=== PATIENT | female | born 1960 | race Hispanic/Latino ===

== ENCOUNTER 2018-02-07 16:22 | Emergency (ER) | payer MEDICARE ==
--- NOTE | 2018-02-07 17:31 | Emergency Department Report ---
ED Psych HPI - General Chief Complaint: Psych Stated Complaint: MENTAL HEALTH EVALUATION Time Seen by Provider: 02/07/18 16:56 Source: patient Mode of arrival: Ambulatory Limitations: No Limitations, Other - History of Present Illness Initial Comments: 57-year-old female with a psychiatric disorder presents to the hospital personnel skilled nursing after recent discharge from [facility]. Patient does not reliably answer questions. She stares and is slow to respond. Apparently she was just discharged from [facility] into [facility] personal skilled nursing. Patient was unable to afford the recently prescribed psychiatric meds. She will be presented to [facility] with this complaint and was told she needed to come to the hospital for medical clearance. Patient does not know her psychiatric diagnosis. He denies physical painGENERAL: Health Center discharge date the plan that most of the information listed as "unable to obtain". Diagnoses listed as "SCPT" schizophrenic chronic paranoid type, cognitive disorder NOS - Related Data Home Medications Medication Instructions Recorded Confirmed Last Taken Citalopram Hydrobromide [celeXA] 20 mg PO QDAY 02/07/18 02/07/18 Unknown Divalproex Sodium [Depakote] 250 mg PO QHS 02/07/18 02/07/18 Unknown Divalproex Sodium [Depakote] 500 mg PO BID 02/07/18 02/07/18 Unknown Lisinopril [Zestril TAB] 10 mg PO QDAY 02/07/18 02/07/18 Unknown Memantine [Namenda] 10 mg PO BID 02/07/18 02/07/18 Unknown Paliperidone Palmitate [Invega 156 mg IM QMONTH 02/07/18 02/07/18 Unknown Sustenna] Ziprasidone [Geodon] 60 mg PO QHS 02/07/18 02/07/18 Unknown Allergies Allergy/AdvReac Type Severity Reaction Status Date / Time No Known Allergies Allergy Unverified 02/07/18 16:38 ED Review of Systems ROS: Stated complaint: MENTAL HEALTH EVALUATION Other details as noted in HPI Comment: Unobtainable due to pts medical conditions ED Past Medical Hx - Past Medical History Previous Medical History?: Yes Hx Psychiatric Treatment: Yes (schizophrenia, cognitive disorder) - Surgical History Past Surgical History?: No Additional Surgical History: unable to obtain - Social History Smoking Status: Unknown if ever smoked - Medications Home Medications: Home Medications Medication Instructions Recorded Confirmed Last Taken Type Citalopram Hydrobromide [celeXA] 20 mg PO QDAY 02/07/18 02/07/18 Unknown History Divalproex Sodium [Depakote] 250 mg PO QHS 02/07/18 02/07/18 Unknown History Divalproex Sodium [Depakote] 500 mg PO BID 02/07/18 02/07/18 Unknown History Lisinopril [Zestril TAB] 10 mg PO QDAY 02/07/18 02/07/18 Unknown History Memantine [Namenda] 10 mg PO BID 02/07/18 02/07/18 Unknown History Paliperidone Palmitate [Invega 156 mg IM QMONTH 02/07/18 02/07/18 Unknown History Sustenna] Ziprasidone [Geodon] 60 mg PO QHS 02/07/18 02/07/18 Unknown History ED Physical Exam - General Limitations: No Limitations - Other Other exam information: General: No limitations, patient is alert in no acute distress Head exam: Atraumatic, normocephalic Eyes exam: Normal appearance ENT: Moist mucous membrane, normal oropharynx Neck exam: Normal inspection, full range of motion, no meningismus nontender Respiratory exam: Clear to auscultation bilateral, no wheezes, rales, crackles Cardiovascular: Normal rate and rhythm, normal heart sounds Abdomen: Soft, nondistended, and nontender, with normal bowel sounds, no rebound, or guarding Extremity: Full range of motion normal inspection no deformity Back: Normal Inspection, full range of motion, no tenderness Neurologic: Alert, oriented x3, cranial nerves intact, no motor or sensory deficit Psychiatric: Flat affect, staring gaze, slow to respond to questions Skin: Warm, dry, intact ED Course Vital Signs 02/07/18 02/07/18 02/07/18 16:39 19:18 23:45 Temperature 99.4 F 98.2 F 98.7 F Pulse Rate 83 85 57 L Respiratory 18 16 17 Rate Blood Pressure 124/83 Blood Pressure 127/82 128/68 [Left] O2 Sat by Pulse 97 95 96 Oximetry 02/08/18 02/08/18 09:30 09:33 Temperature 98.3 F Pulse Rate 73 73 Respiratory 18 Rate Blood Pressure 152/92 Blood Pressure 152/92 [Left] O2 Sat by Pulse 98 Oximetry - Consultations Consultation #1: Patient did receive mental health evaluation here. It was deemed that this is not an acute psychiatric issue and more of a social services counselor issue ED Medical Decision Making - Lab Data Result diagrams: 02/07/18 17:22 02/07/18 17:22 Lab Results 02/07/18 02/07/18 02/07/18 Range/Units 17:22 17:22 17:22 WBC (4.5-11.0) K/mm3 RBC (3.65-5.03) M/mm3 Hgb (10.1-14.3) gm/dl Hct (30.3-42.9) % MCV (79-97) fl MCH (28-32) pg MCHC (30-34) % RDW (13.2-15.2) % Plt Count (140-440) K/mm3 Lymph % (Auto) (13.4-35.0) % [place] % (Auto) (0.0-7.3) % Eos % (Auto) (0.0-4.3) % Baso % (Auto) (0.0-1.8) % Lymph # (1.2-5.4) K/mm3 [place] # (0.0-0.8) K/mm3 Eos # (0.0-0.4) K/mm3 Baso # (0.0-0.1) K/mm3 Seg Neutrophils % (40.0-70.0) % Seg Neutrophils # (1.8-7.7) K/mm3 Sodium 140 (137-145) mmol/L Potassium 4.1 (3.6-5.0) mmol/L Chloride 101.0 (98-107) mmol/L Carbon Dioxide 26 (22-30) mmol/L Anion Gap 17 mmol/L BUN 14 (7-17) mg/dL Creatinine 0.6 L (0.7-1.2) mg/dL Estimated GFR > 60 ml/min BUN/Creatinine Ratio 23 % Glucose 102 H (65-100) mg/dL Calcium 9.2 (8.4-10.2) mg/dL Salicylates < 0.3 L (2.8-20.0) mg/dL Acetaminophen < 5.0 L (10.0-30.0) ug/mL Valproic Acid (50-100) ug/mL Plasma/Serum Alcohol (0-0.07) % 02/07/18 02/07/18 02/07/18 Range/Units 17:22 17:22 17:39 WBC 7.6 (4.5-11.0) K/mm3 RBC 4.17 (3.65-5.03) M/mm3 Hgb 13.2 (10.1-14.3) gm/dl Hct 38.2 (30.3-42.9) % MCV 92 (79-97) fl MCH 32 (28-32) pg MCHC 34 (30-34) % RDW 12.7 L (13.2-15.2) % Plt Count 116 L (140-440) K/mm3 Lymph % (Auto) 25.1 (13.4-35.0) % [place] % (Auto) 8.5 H (0.0-7.3) % Eos % (Auto) 1.0 (0.0-4.3) % Baso % (Auto) 0.4 (0.0-1.8) % Lymph # 1.9 (1.2-5.4) K/mm3 [place] # 0.6 (0.0-0.8) K/mm3 Eos # 0.1 (0.0-0.4) K/mm3 Baso # 0.0 (0.0-0.1) K/mm3 Seg Neutrophils % 65.0 (40.0-70.0) % Seg Neutrophils # 4.9 (1.8-7.7) K/mm3 Sodium (137-145) mmol/L Potassium (3.6-5.0) mmol/L Chloride (98-107) mmol/L Carbon Dioxide (22-30) mmol/L Anion Gap mmol/L BUN (7-17) mg/dL Creatinine (0.7-1.2) mg/dL Estimated GFR ml/min BUN/Creatinine Ratio % Glucose (65-100) mg/dL Calcium (8.4-10.2) mg/dL Salicylates (2.8-20.0) mg/dL Acetaminophen (10.0-30.0) ug/mL Valproic Acid 58.6 (50-100) ug/mL Plasma/Serum Alcohol < 0.01 (0-0.07) % - Medical Decision Making Patient has schizophrenia and a cognitive disorder. She was recently discharged from a psychiatric hospital to a personal care facility and apparently her medicine too expensive. The personal skilled nursing then sent her to the ER. Mental health assessment patient and deemed this is not an acute psychiatric emergency and patient is supposed to take the prescribed medication. This apparently is more with social services counselor issue. instructor ground services consult has been ordered for the a.m. In the meantime her current medication will be continued - Differential Diagnosis psychosis, schizophrenia, bipolar Critical Care Time: No Critical care attestation.: If time is entered above; I have spent that time in minutes in the direct care of this critically ill patient, excluding procedure time. ED Disposition Clinical Impression: Schizophrenia, Cognitive disorder Disposition: [id number]/TX-70 ANOTHER TYPE HLTHCARE Is pt being admited?: No Condition: Stable Instructions: Schizophrenia (ED) Time of Disposition: 01:25 (pt transfered to [facility] after psych eval)
[2018-02-07 17:33] LABS: Basophils % (Auto) 0.4 % (0.0-1.8); Eosinophils # (Auto) 0.1 K/mm3 (0.0-0.4); Hematocrit 38.2 % (30.3-42.9); Hemoglobin 13.2 gm/dl (10.1-14.3); Lymphocytes # (Auto) 1.9 K/mm3 (1.2-5.4); Lymphocytes % (Auto) 25.1 % (13.4-35.0); Mean Corpuscular HGB Conc 34 % (30-34); Mean Corpuscular Hemoglobin 32 pg (28-32); Mean Corpuscular Volume 92 fl (79-97); Monocytes # (Auto) 0.6 K/mm3 (0.0-0.8); Monocytes % (Auto) 8.5 % (0.0-7.3); Platelet Count 116 K/mm3 (140-440); Red Blood Count 4.17 M/mm3 (3.65-5.03); Red Cell Distribution Width 12.7 % (13.2-15.2)
[2018-02-07 17:52] LABS: BUN/Creatinine Ratio 23; Blood Urea Nitrogen 14 mg/dL (7-17); Calcium 9.2 mg/dL (8.4-10.2); Hemolysis Index 3
[2018-02-07] MEDS ORDERED: GEODON PO ONE (22:13)
[2018-02-08] MEDS ORDERED: GEODON IM ONE ×2 (09:30)
[2018-02-08] MEDS ORDERED: NAMENDA PO SCH (10:00)
[2018-02-08] MEDS ORDERED: ZESTRIL PO SCH (10:00)
[2018-02-08] MEDS ORDERED: celeXA PO SCH (10:00)
[2018-02-08 10:08] VITALS: BP 152/92
--- NOTE | 2018-02-08 10:50 | Emergency Department Report ---
Blank Doc - Documentation Documentation: at 0930, nurse asked that I examine the patient for acute agitation and aggression towards staff. The patient is a 57-year-old female that originally presents emergency room for behavioral problems and agitation at her long-term. Patient was evaluated and was awaiting a mental health evaluation. However patient became acutely agitated and aggressive with staff. Patient is nonsensical and unable to make decisions. The patient appears to be having acute psychosis. Patient unable to answer questions appropriately. Will 1013 patient for acute psychosis and agitation. Will place patient in a seclusion room. Patient will also be given Geodon 10. Patient was fully evaluated while in the seclusion room.. Lungs sounds clear to auscultation. CV exam is normal. Abdominal exam is negative. Will consult mental health for reevaluation.
--- NOTE | 2018-02-08 12:17 | Consultation ---
History of Present Illness - Reason for Consult Consult date: 02/08/18 Reason for consult: Mental Health Evaluation Requesting physician: GEM CONNER III - Chief Complaint Chief complaint: "What do you need" - History of Present Psychiatric Illness 57-year-old female with a psychiatric disorder presents to the hospital personnel long term after recent discharge from [facility]. Today the patient is calm, but confused during the assessment. The patient stares with one word answers when questioned. Most of her answers we're not logical. Per the record, the patient was aggressive and combative toward staff prior to my assessment. Per the notes, the patient ate 50% of her breakfast today. The patient is a poor historian. Medications and Allergies Allergies Allergy/AdvReac Type Severity Reaction Status Date / Time No Known Allergies Allergy Unverified 02/07/18 16:38 Home Medications Medication Instructions Recorded Confirmed Last Taken Type Citalopram Hydrobromide [celeXA] 20 mg PO QDAY 02/07/18 02/07/18 Unknown History Divalproex Sodium [Depakote] 250 mg PO QHS 02/07/18 02/07/18 Unknown History Divalproex Sodium [Depakote] 500 mg PO BID 02/07/18 02/07/18 Unknown History Lisinopril [Zestril TAB] 10 mg PO QDAY 02/07/18 02/07/18 Unknown History Memantine [Namenda] 10 mg PO BID 02/07/18 02/07/18 Unknown History Paliperidone Palmitate [Invega 156 mg IM QMONTH 02/07/18 02/07/18 Unknown History Sustenna] Ziprasidone [Geodon] 60 mg PO QHS 02/07/18 02/07/18 Unknown History Active Meds: Active Medications Citalopram Hydrobromide (Celexa) 20 mg PO QDAY [facility] Last Admin: 02/08/18 09:34 Dose: 20 mg Divalproex Sodium (Depakote Dr) 250 mg PO QHS [facility] Divalproex Sodium (Depakote Dr) 500 mg PO BID@0800,1700 [facility] Last Admin: 02/08/18 09:20 Dose: 500 mg Lisinopril (Zestril) 10 mg PO QDAY [facility] Last Admin: 02/08/18 09:33 Dose: 10 mg Memantine (Namenda) 10 mg PO BID [facility] Last Admin: 02/08/18 11:30 Dose: 10 mg Ziprasidone (Geodon) 60 mg PO QHS [facility] Past psychiatric history - Past Medical History Past Medical History: other (Neuro Cog DO per the record) Past Surgical History: Other (Unable to obtain) - past Psychiatric treatment and history psychiatric treatment history: Per the record, recently discharged from [facility]. Unable to obtain a fam psy hx. - Social History Social history: other (Reside at a personal long term) Mental Status Exam - Vital signs Last Vital Signs Temp 98.3 F 02/08/18 09:30 Pulse 73 02/08/18 09:33 Resp 18 02/08/18 09:30 BP 152/92 02/08/18 09:33 Pulse Ox 98 02/08/18 09:30 - Exam Narrative exam: MSE: Appearance: calm Behavior: stares with one word answers Speech: regular rate and tone Mood: "okay" Affect: flat Thought Process: disorganized Thought Content: no gestures of SI/HI's and AVH's Motor Activity: pacing and wandering Cognition: alert, but confused Insight: poor Judgment: poor Results Result Diagrams: 02/07/18 17:22 02/07/18 17:22 Abnormal lab results 02/07/18 02/07/18 02/07/18 Range/Units 17:22 17:22 17:22 RDW (13.2-15.2) % Plt Count (140-440) K/mm3 [place] % (Auto) (0.0-7.3) % Creatinine 0.6 L (0.7-1.2) mg/dL Glucose 102 H (65-100) mg/dL Salicylates < 0.3 L (2.8-20.0) mg/dL Acetaminophen < 5.0 L (10.0-30.0) ug/mL 02/07/18 Range/Units 17:22 RDW 12.7 L (13.2-15.2) % Plt Count 116 L (140-440) K/mm3 [place] % (Auto) 8.5 H (0.0-7.3) % Creatinine (0.7-1.2) mg/dL Glucose (65-100) mg/dL Salicylates (2.8-20.0) mg/dL Acetaminophen (10.0-30.0) ug/mL All other labs normal. Assessment and Plan Assessment and plan: Impression: Unspecified Psychosis. Today the patient is calm, but confused during the assessment. VA 58.6. DDx: Unspecified Neuro Cog DO, R/O Schizophrenia, R/O Bipolar DO Recommendation/Plan: Continue 1013 with pending placement to [facility] today. Continue current medication regimen.
[2018-02-08] MEDS ORDERED: GEODON PO SCH (22:00)
[2018-02-08] MEDS ORDERED: NAMENDA PO ONE (22:14)
== END 2018-02-08 19:30 | disposition other institution (70) ==
LOC: ED 16:22 → EEVIPCON 16:22 → ED 02-08 19:30
DX: F20.9 Schizophrenia, unspecified (principal); F09 Unspecified mental disorder due to known physiological condition
CPT/HCPCS: 36415; 80048; 80164; 82550; 85025; 99285; G0480; J3486; 80320